=== PATIENT | male | born 1995 | race Caucasian/White ===

== ENCOUNTER 2016-09-05 16:21 | Emergency (ER) | payer MEDICAID ==
[2011-11-10 08:38] VITALS: BMI 21.1
== END 2016-09-05 16:22 | disposition left against medical advice (07) ==
LOC: D.ER 16:21
DX: Z02.9 Encounter for administrative examinations, unspecified (principal)

== ENCOUNTER 2016-09-09 20:43 | Emergency (ER) | payer MEDICAID ==
[2011-11-10 08:38] VITALS: BMI 21.1
== END 2016-09-09 22:31 | disposition home or self-care (01) ==
LOC: D.ER 20:43
DX: S99.921A Unspecified injury of right foot, initial encounter (principal); X58.XXXA Exposure to other specified factors, initial encounter; Y93.89 Activity, other specified; Y92.89 Other specified places as the place of occurrence of the external cause; S90.31XA Contusion of right foot, initial encounter; K90.0 Celiac disease; E11.9 Type 2 diabetes mellitus without complications; Z79.4 Long term (current) use of insulin; F17.200 Nicotine dependence, unspecified, uncomplicated

== ENCOUNTER 2016-11-18 15:19 | Emergency (ER) | payer OTHER, MEDICAID ==
[2011-11-10 08:38] VITALS: BMI 21.1
== END 2016-11-18 17:26 | disposition home or self-care (01) ==
LOC: D.ER 15:19
DX: S61.211A Laceration without foreign body of left index finger without damage to nail, initial encounter (principal); W54.0XXA Bitten by dog, initial encounter; Y93.89 Activity, other specified; Y92.019 Unspecified place in single-family (private) house as the place of occurrence of the external cause; E11.9 Type 2 diabetes mellitus without complications

== ENCOUNTER 2016-11-21 00:16 | Emergency (ER) | payer OTHER, MEDICAID ==
[2011-11-10 08:38] VITALS: BMI 21.1
== END 2016-11-21 01:54 | disposition home or self-care (01) ==
LOC: D.ER 00:16
DX: S61.231D Puncture wound without foreign body of left index finger without damage to nail, subsequent encounter (principal); W54.0XXD Bitten by dog, subsequent encounter; E11.9 Type 2 diabetes mellitus without complications

== ENCOUNTER 2016-11-25 23:56 | Emergency (ER) | payer OTHER, MEDICAID ==
[2011-11-10 08:38] VITALS: BMI 21.1
== END 2016-11-26 00:20 | disposition home or self-care (01) ==
LOC: D.ER 23:56
DX: S61.210D Laceration without foreign body of right index finger without damage to nail, subsequent encounter (principal); X58.XXXD Exposure to other specified factors, subsequent encounter; Y92.029 Unspecified place in mobile home as the place of occurrence of the external cause; Z48.02 Encounter for removal of sutures; E11.9 Type 2 diabetes mellitus without complications; Z79.4 Long term (current) use of insulin

== ENCOUNTER 2017-06-17 15:53 | Emergency (ER) | payer MEDICAID ==
[2011-11-10 08:38] VITALS: BMI 21.1
== END 2017-06-17 17:45 | disposition home or self-care (01) ==
LOC: D.ER 15:53
DX: M25.551 Pain in right hip (principal); F17.200 Nicotine dependence, unspecified, uncomplicated; E11.9 Type 2 diabetes mellitus without complications; Z79.4 Long term (current) use of insulin; M06.9 Rheumatoid arthritis, unspecified

== ENCOUNTER 2017-07-01 14:59 | Emergency (ER) | payer MEDICAID ==
[2011-11-10 08:38] VITALS: BMI 21.1
== END 2017-07-01 17:47 | disposition home or self-care (01) ==
LOC: D.ER 14:59
DX: S83.91XA Sprain of unspecified site of right knee, initial encounter (principal); V89.2XXA Person injured in unspecified motor-vehicle accident, traffic, initial encounter; Y93.9 Activity, unspecified; Y92.9 Unspecified place or not applicable; S70.01XA Contusion of right hip, initial encounter; E11.9 Type 2 diabetes mellitus without complications; Z79.4 Long term (current) use of insulin; F17.200 Nicotine dependence, unspecified, uncomplicated

== ENCOUNTER 2017-07-13 18:23 | Emergency (ER) | payer MEDICAID ==
[2011-11-10 08:38] VITALS: BMI 21.1
== END 2017-07-13 21:26 | disposition home or self-care (01) ==
LOC: D.ER 18:23
DX: M25.551 Pain in right hip (principal); M54.5 Low back pain; F17.200 Nicotine dependence, unspecified, uncomplicated; E11.9 Type 2 diabetes mellitus without complications; Z79.4 Long term (current) use of insulin

== ENCOUNTER 2017-07-15 17:29 | Emergency (ER) | payer MEDICAID ==
[2011-11-10 08:38] VITALS: BMI 21.1
== END 2017-07-15 19:40 | disposition home or self-care (01) ==
LOC: D.ER 17:29
DX: M25.551 Pain in right hip (principal); M62.838 Other muscle spasm; E11.9 Type 2 diabetes mellitus without complications

== ENCOUNTER 2017-08-13 22:07 | Emergency (ER) | payer MEDICAID ==
[~2017-08-13] VITALS: Ht 175.3 cm; Wt 72.7 kg
[2017-08-13 22:10] VITALS: Ht 175.3 cm; Wt 72.7 kg
[2017-08-14 00:27] VITALS: BP 115/58
== END 2017-08-14 00:28 | disposition home or self-care (01) ==
LOC: D.ER 22:07
DX: M25.551 Pain in right hip (principal)

== ENCOUNTER 2018-04-20 15:24 | Emergency (ER) | payer MEDICAID ==
[~2018-04-20] VITALS: Ht 175.3 cm; Wt 72.7 kg
[2018-04-20 15:35] VITALS: Ht 175.3 cm; Wt 72.7 kg
[2018-04-20] MEDS ORDERED: PLAQUENIL (15:38)
[2018-04-20] MEDS ORDERED: CYCLOBENZAPRINE10 MG PO (15:38)
[2018-04-20] MEDS ORDERED: NEURONTIN800 MG PO (15:38)
[2018-04-20] MEDS ORDERED: HUMALOG 30100 UNITS/ SC (15:39)
[2018-04-20] MEDS ORDERED: HYDROCODON-ACE1 EA10 PO (15:39)
[2018-04-20] MEDS ORDERED: LANTUS INSULIN10 ML SC (15:39)
[2018-04-20] MEDS ORDERED: ZOFRAN8 MG PO (15:40)
[2018-04-20 16:18] LABS: APPEARANCE CLEAR (CLEAR); BILIRUBIN NEGATIVE (NEGATIVE); COLOR YELLOW (YELLOW); GLUCOSE 1000 mg/dL (NEGATIVE); KETONE MODERATE mg/dL (NEGATIVE); NITRITE NEGATIVE (NEGATIVE); PROTEIN NEGATIVE (NEGATIVE); UROBILINOGEN NORMAL (NORMAL)
[2018-04-20 16:42] LABS: BASOPHILS 0.2 % (0-2); EOSINOPHILS 0.2 % (0-7); HEMATOCRIT 38.2 % (42.0-54.0); LYMPHOCYTES 17.2 % (15-50); MCH 31.6 pg (26.0-34.0); MCV 92.9 fL (80.0-100.0); MEAN PLATELET VOLUME 10.5 fL (7.4-10.4); MONOCYTES 11.6 % (2-11); NEUTROPHILS 70.8 % (40-80); RBC 4.11 10x6/uL (4.20-6.10); RDW 12.9 % (11.5-14.5); WBC 4.6 10x3/uL (4.8-10.8)
[2018-04-20 16:59] LABS: ALBUMIN 3.7 g/dL (3.4-5.0); ALKALINE PHOSPHATASE 232 U/L (46-116); ALT (SGPT) 181 U/L (10-68); BILIRUBIN - TOTAL 0.41 mg/dL (0.2-1.3); CALC OSMOLALITY 283 mosm/kg (275-300); CALCIUM 8.8 mg/dL (8.5-10.1); CARBON DIOXIDE 24.9 mmol/L (21.0-32.0); CHLORIDE - SERUM 101 mmol/L (98-107); POTASSIUM - SERUM 4.1 mmol/L (3.5-5.1); PROTEIN - SERUM 7.1 g/dL (6.4-8.2); SODIUM 138 mmol/L (136-145); UREA NITROGEN 14 mg/dL (7-18); eGFR NON AFRICAN AMERICAN > 90 mL/min (90-120)
[2018-04-20 17:05] LABS: GLUCOSE 225 mg/dL (74-106)
[2018-04-20 17:09] LABS: PLATELET COUNT 172 10x3/uL (130-400)
[2018-04-20] MEDS ORDERED: TAMIFLU75 MG PO (18:29)
[2018-04-20] MEDS ORDERED: ZOFRAN ODT4 MG/UDTAB PO (18:29)
[2018-04-20] MEDS ORDERED: MIRALAX17 GM PO (19:38)
[2018-04-20 20:05] VITALS: BP 100/50
== END 2018-04-20 20:05 | disposition home or self-care (01) ==
LOC: D.ER 15:24
PROVIDERS: Family Medicine
DX: J09.X2 Influenza due to identified novel influenza A virus with other respiratory manifestations (principal); K59.00 Constipation, unspecified; R94.5 Abnormal results of liver function studies; E10.65 Type 1 diabetes mellitus with hyperglycemia

== ENCOUNTER 2019-09-15 06:57 | Emergency (ER) | payer MEDICAID ==
[~2019-09-15] VITALS: Ht 175.3 cm; Wt 72.6 kg
[~2019-09-15 06:57] MED LIST: BACLOFEN20 M1 PO; CLEOCIN HCL300 MG PO; CYCLOBENZAPRINE10 MG PO; HUMALOG 30100 UNITS/ SC; HYDROCODON-ACE1 EA10 PO; LANTUS INSULIN10 ML SC; MIRALAX17 GM PO; MUCINEX DM ER1 EAC1 PO; NEURONTIN800 MG PO; PLAQUENIL; TALWIN NX1 TAB PO; TAMIFLU75 MG PO; ZOFRAN ODT4 MG/UDTAB PO; ZOFRAN8 MG PO
[2019-09-15 07:07] VITALS: Ht 175.3 cm; Wt 72.6 kg
[2019-09-15 07:48] LABS: BASOPHILS 0.3 % (0-2); EOSINOPHILS 2.9 % (0-7); HEMOGLOBIN 13.3 g/dL (13.5-17.5); IMMATURE GRANULOCYTES 0.1 % (0-5); LYMPHOCYTES 28.8 % (15-50); MCH 31.1 pg (26.0-34.0); MCHC 32.4 g/dL (31.0-37.0); MEAN PLATELET VOLUME 10.1 fL (7.4-10.4); MONOCYTES 8.4 % (2-11); NEUTROPHILS 59.5 % (40-80); RBC 4.27 10x6/uL (4.20-6.10); RDW 12.3 % (11.5-14.5); WBC 7.1 10x3/uL (4.8-10.8)
[2019-09-15 07:50] LABS: PLATELET COUNT 200 10x3/uL (130-400)
[2019-09-15 08:07] LABS: CALC OSMOLALITY 288 mosm/kg (275-300); CALCIUM 8.7 mg/dL (8.5-10.1); CARBON DIOXIDE 29.5 mmol/L (21.0-32.0); CHLORIDE - SERUM 105 mmol/L (98-107); CREATININE - SERUM 0.8 mg/dL (0.6-1.3); GLUCOSE 236 mg/dL (74-106); POTASSIUM - SERUM 3.9 mmol/L (3.5-5.1); SODIUM 140 mmol/L (136-145); UREA NITROGEN 19 mg/dL (7-18); eGFR NON AFRICAN AMERICAN > 90 mL/min (90-120)
[2019-09-15 08:10] LABS: ALBUMIN 3.3 g/dL (3.4-5.0); ALKALINE PHOSPHATASE 158 U/L (30-120); ALT (SGPT) 126 U/L (10-68); AMYLASE - SERUM 49 U/L (25-115); BILIRUBIN - TOTAL 0.18 mg/dL (0.2-1.3); LIPASE 52 U/L (73-393); MAGNESIUM - SERUM 1.6 mg/dL (1.8-2.4); PROTEIN - SERUM 6.1 g/dL (6.4-8.2)
[2019-09-15 08:11] LABS: BILIRUBIN NEGATIVE (NEGATIVE); GLUCOSE 1000 mg/dL (NEGATIVE); KETONE NEGATIVE (NEGATIVE); NITRITE NEGATIVE (NEGATIVE); SPECIFIC GRAVITY 1.015 (1.005-1.020); UROBILINOGEN NORMAL (NORMAL)
[2019-09-15 08:20] LABS: UDS - AMPHET NEGATIVE QUAL (NEGATIVE); UDS - BARB NEGATIVE QUAL (NEGATIVE); UDS - BENZO NEGATIVE QUAL (NEGATIVE); UDS - COCAINE NEGATIVE QUAL (NEGATIVE); UDS - OPIATE NEGATIVE QUAL (NEGATIVE); UDS - PCP NEGATIVE QUAL (NEGATIVE); UDS - THC NEGATIVE QUAL (NEGATIVE)
[2019-09-15] MEDS ORDERED: PEPCID40 MG PO (09:53)
[2019-09-15 10:16] VITALS: BP 140/86
== END 2019-09-15 10:16 | disposition home or self-care (01) ==
LOC: D.ER 06:57
PROVIDERS: Family Medicine
DX: K90.0 Celiac disease (principal); K21.9 Gastro-esophageal reflux disease without esophagitis; E11.40 Type 2 diabetes mellitus with diabetic neuropathy, unspecified; Z79.4 Long term (current) use of insulin

== ENCOUNTER 2019-10-21 21:00 | Emergency (ER) | payer MEDICAID ==
[~2019-10-21] VITALS: Ht 175.3 cm; Wt 72.7 kg
[~2019-10-21 21:00] MED LIST changes: +PEPCID40 MG PO
[2019-10-21 21:24] VITALS: Ht 175.3 cm; Wt 72.7 kg
[2019-10-21] MEDS ORDERED: NAPROSYN500 MG PO (23:37)
[2019-10-21 23:49] VITALS: BP 138/72
== END 2019-10-21 23:50 | disposition home or self-care (01) ==
LOC: D.ER 21:00
DX: M25.552 Pain in left hip (principal); E11.9 Type 2 diabetes mellitus without complications

== ENCOUNTER 2019-11-30 18:17 | Emergency (ER) | payer MEDICAID ==
[~2019-11-30 18:17] MED LIST changes: +NAPROSYN500 MG PO
[2019-11-30 18:48] VITALS: Ht 175.3 cm
[2019-11-30 19:13] LABS: BASOPHILS 0.2 % (0-2); EOSINOPHILS 0.7 % (0-7); HEMATOCRIT 42.2 % (42.0-54.0); HEMOGLOBIN 13.8 g/dL (13.5-17.5); IMMATURE GRANULOCYTES 0.1 % (0-5); LYMPHOCYTES 21.8 % (15-50); MCH 31.7 pg (26.0-34.0); MCHC 32.7 g/dL (31.0-37.0); MEAN PLATELET VOLUME 9.7 fL (7.4-10.4); MONOCYTES 10.8 % (2-11); NEUTROPHILS 66.4 % (40-80); PLATELET COUNT 229 10x3/uL (130-400); RBC 4.35 10x6/uL (4.20-6.10); RDW 12.9 % (11.5-14.5); WBC 8.5 10x3/uL (4.8-10.8)
[2019-11-30 19:29] LABS: CALC OSMOLALITY 288 mosm/kg (275-300); CALCIUM 9.2 mg/dL (8.5-10.1); CARBON DIOXIDE 32.7 mmol/L (21.0-32.0); CHLORIDE - SERUM 102 mmol/L (98-107); CREATININE - SERUM 0.8 mg/dL (0.6-1.3); POTASSIUM - SERUM 4.6 mmol/L (3.5-5.1); SODIUM 138 mmol/L (136-145); UREA NITROGEN 10 mg/dL (7-18); eGFR NON AFRICAN AMERICAN > 90 mL/min (90-120)
[2019-11-30 19:31] LABS: GLUCOSE 352 mg/dL (74-106)
[2019-11-30 19:34] LABS: ALBUMIN 3.9 g/dL (3.4-5.0); ALKALINE PHOSPHATASE 93 U/L (30-120); ALT (SGPT) 39 U/L (10-68); BILIRUBIN - TOTAL 0.59 mg/dL (0.2-1.3)
[2019-11-30 22:31] LABS: BILIRUBIN NEGATIVE (NEGATIVE); KETONE NEGATIVE (NEGATIVE); NITRITE NEGATIVE (NEGATIVE); UROBILINOGEN NORMAL mg/dL (< 2)
[2019-11-30 22:32] LABS: BACTERIA FEW HPF (NONE SEEN); EPITHELIAL CELLS NSEEN /hpf (0-5); WHITE CELLS - URINE 0-5 HPF (0-1)
[2019-11-30 22:35] LABS: UDS - AMPHET POSITIVE QUAL (NEGATIVE); UDS - BARB NEGATIVE QUAL (NEGATIVE); UDS - BENZO NEGATIVE QUAL (NEGATIVE); UDS - COCAINE NEGATIVE QUAL (NEGATIVE); UDS - OPIATE NEGATIVE QUAL (NEGATIVE); UDS - PCP NEGATIVE QUAL (NEGATIVE); UDS - THC NEGATIVE QUAL (NEGATIVE)
[2019-12-01 00:29] VITALS: BP 150/89
== END 2019-12-01 00:29 | disposition home or self-care (01) ==
LOC: D.ER 18:17
PROVIDERS: Family Medicine
DX: Z91.14 Patient's other noncompliance with medication regimen (principal); F15.10 Other stimulant abuse, uncomplicated; E11.649 Type 2 diabetes mellitus with hypoglycemia without coma; Z79.4 Long term (current) use of insulin